=== PATIENT | female | born 1990 | race Caucasian/White ===

== ENCOUNTER → 2024-02-17 | Outpatient (CLI) | payer MEDICAID, SELFPAY ==
--- NOTE | 2024-02-17 16:00 | XR_ITS ---
Exam: MRI knee without contrast, right complete Date and time of exam: February 17, 2024 1650 hrs. Indications: Injury to the knee June 01, 2023 followed by immediate pain joint popping generalized swelling stiffness stabbing burning pain instability loss of function joint clicking Technique: Multiple axial, coronal, and sagittal sections on the knee have been obtained. T2-Weighted sagittal, fat-suppressed images, TR 3,500, TE 62, T2 weighted coronal fat-saturated images, TR 3,500, TE 62 Proton density sagittal sections, TR 1800, TE 31. T-1 weighted coronal images, TR 524, TE 13.0 Findings: Medial meniscus anterior horn intact. Medial meniscus, body is intact. Posterior horn medial meniscus is intact. Lateral meniscus anterior horn is intact Lateral meniscus, body oblique linear tear, coronal image 16, communicating inferior articular surface Posterior horn lateral meniscus is intact Anterior cruciate ligament mild sprain Posterior cruciate ligament appears intact. Knee effusion is moderate. Quadriceps and patellar tendons appear intact. There is no evidence of tendinosis. Inflammatory change or fracture of Hoffa's fat pad is not seen. Medial patellar facet demonstrates mild thinning. Lateral patellar facet cartilage demonstrates no thinning. Trochlear cartilage demonstrates mild thinning. Marrow signal adequate. Medial collateral ligament appears intact. No meniscocapsular separation is seen. Illiotibial band and fibular collateral ligament are intact. Biceps femoris tendons appear intact. Medial femoral condylar articular cartilage demonstrates mild thinning. Lateral femoral condylar articular cartilage demonstratesmild thinning. Tibial plateau cartilage demonstrates mild thinning. Impression: Mild sprain anterior cruciate ligament Oblique linear tear body of the lateral meniscus
== END | disposition home or self-care (01) ==
LOC: SMRI 15:26
PROVIDERS: PCP Family Medicine; Referring Provider Family Medicine; Visit Provider Family Medicine
DX: S83.511A Sprain of anterior cruciate ligament of right knee, initial encounter (principal); S83.281A Other tear of lateral meniscus, current injury, right knee, initial encounter; X58.XXXA Exposure to other specified factors, initial encounter
CPT/HCPCS: 73721